=== PATIENT | male | born 1970 | race Caucasian/White ===

== ENCOUNTER 2021-03-12 12:35 | Emergency (ER) | payer OTHER ==
[~2021-03-12] VITALS: Ht 185.4 cm; Wt 115.0 kg
[2021-03-12] MEDS ORDERED: MORPHINE SULFATE 4 MG/ML, 1ML IVPush PRN (13:30)
[2021-03-12] MEDS ORDERED: ONDANSETRON 2MG/ML, 2ML IVPush ONE (13:30)
[2021-03-12] MEDS ORDERED: SODIUM CHLORIDE FLUSH 10ML SYR IVF ONE (13:30)
[2021-03-12] MEDS ORDERED: MORPHINE SULFATE 4 MG/ML, 1ML ONE (13:47)
[2021-03-12] MEDS ORDERED: ONDANSETRON 2MG/ML, 2ML ONE (13:47)
[2021-03-12 14:05] LABS: BASOPHILS % (AUTO) 0 % (0-1); EOSINOPHILS % (AUTO) 1 % (1-7); LYMPHOCYTES % (AUTO) 7 % (22-44); MEAN CORPUSCULAR HGB CONC 34.3 g/dL (33.2-36.2); MEAN PLATELET VOLUME 8.8 fL (7.4-10.4); MONOCYTES % (AUTO) 9 % (2-9); NEUTROPHILS % (AUTO) 83 % (42-75); PLATELET COUNT 233 x10^3/uL (130-400); RED BLOOD COUNT 5.31 x10^6/uL (4.38-5.82); RED CELL DISTRIBUTION WIDTH 13.6 % (9.4-14.8)
[2021-03-12 14:11] LABS: ALBUMIN 3.5 g/dL (3.4-5.0); CALCIUM 9.1 mg/dL (8.5-10.1); CHLORIDE 106 mmol/L (98-107)
--- NOTE | 2021-03-12 14:11 | NUR ---
PT PRESENTS TO ED WITH C/O STERNAL CP 8/10, SHARP IN NATURE, NON-RADIATING, WORSENED WITH PALPATION. ONSET OF PAIN WAS THIS AM. PIV PLACED, PT MEDICATED PER EMAR, STATES PAIN DOWN TO 5/10 AT THIS TIME. 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 PT IS AWAKE, ALERT AND ORIENTED, ALL MONTIORS IN PLACE, SINUS TACH RATE 100'S ON TELETYPIST WITH NO ECTOPY. PT IS DIAPHORETIC, BUT COOL TO TOUCH. AWAITING CXR AND LABWORK AT THIS TIME.
[2021-03-12 14:18] LABS: ALANINE AMINOTRANSFERASE 30 U/L (12-78); ALKALINE PHOSPHATASE 75 U/L (45-117); ANION GAP 7 mmol/L (5-15); BILIRUBIN,TOTAL 0.6 mg/dL (0.2-1.0); CREATININE 1.16 mg/dL (0.7-1.3); TOTAL PROTEIN 7.2 g/dL (6.4-8.2); TROPONIN I < 0.015 ng/mL (0.000-0.045)
--- NOTE | 2021-03-12 14:47 | NUR ---
PT REPORTING CHEST PAIN IS TOLERABLE AT 4/10, EDMD SAHM NOTIFIED PT REMAINS TACHYCARDIC AT RATE 110'S WITH NO ECTOPY. CTA ORDERED.
[2021-03-12] MEDS ORDERED: OMNIPAQUE 350 MG/ML, 100ML BOTTLE ONE (15:45)
--- NOTE | 2021-03-12 16:00 | NUR ---
REPORT RECEIVED FROM RAUL CISSE. PT SLEEPING ON GURNEY, RESPS EVEN AND UNLABORED. PT IS SINUS TACH RATE 100'S WITH NO ECTOPY. AT BEDSIDE. CHART UP FOR RECHECK, AWAITNG MD AND DISPO.
[2021-03-12] MEDS ORDERED: SODIUM CHLORIDE 0.9% 1,000ML IVBOLUS ONE (16:30)
[2021-03-12 16:48] LABS: TROPONIN I < 0.015 ng/mL (0.000-0.045)
--- NOTE | 2021-03-12 17:00 | NUR ---
PT ASSISTED TO BATHROOM TO VOID, GAIT STEADY.
[2021-03-12] MEDS ORDERED: KETOROLAC 30 MG/1 ML IVPush ONE (18:00)
[2021-03-12] MEDS ORDERED: KETOROLAC 30 MG/1 ML ONE (18:09)
--- NOTE | 2021-03-12 18:52 | NUR ---
report recieved from benito hernandez. pt states feeling much better after tordol admin. pt has no other needs at this time
--- NOTE | 2021-03-12 18:56 | NUR ---
report given to VIRGINIA Ramirez at bedside. pt reports pain completely resolved following toradol admin. EDMD Sahm notified pt meets some sirs criteria including tachycardia and elevated WBC. EDMD acknowledges but states there is no source of infection. pt to be dicharged, no further orders received.
[2021-03-12 19:03] VITALS: BP 154/103
== END 2021-03-12 19:29 | disposition home or self-care (01) ==
LOC: ED 18:34
DX: R07.89 Other chest pain (principal); I30.0 Acute nonspecific idiopathic pericarditis
CPT/HCPCS: 36415; 71045; 71275; 80053; 83690; 84484; 85025; 93005; 96361; 96374; 96375; 99285; J1885; J2270; J2405; J7030; Q9967